=== PATIENT | male | born 1990 | race Caucasian/White ===

== ENCOUNTER 2023-06-22 09:52 | Emergency (ER) | payer BC, SELFPAY ==
[2023-06-22 09:58] VITALS: BP 164/74; PULSE 88; RESP 20; TEMP 36.7; O2SAT 96
[2023-06-22 10:41] LABS: Appearance Urine Clear (Clear); Bilirubin Urine 1+ (Negative); Blood Urine Negative (Negative); Color Urine Dark Yellow (Yellow); Glucose Urine UA Negative (Negative); Ketones Urine Negative (Negative); Leukocyte Esterase Ur Negative LEU/UL (Negative); Nitrate Urine Negative (Negative); Protein Urine Negative (Negative); Specific Grav Ur 1.023 (1.001-1.035)
--- NOTE | 2023-06-22 10:46 | ED.MALEGU ---
HPI - Male Genitourinary General Chief complaint: Urogenital-Male Stated complaint: bladder spasm? Time Seen by Provider: 06/22/23 09:57 History of Present Illness HPI Narrative: Patient is a 32-year-old male who presents ER with concerns for urinary dribbling. This has been a chronic issue. He has been seen at several ERs. He was recently started on Azo for it. No urinary frequency urgency or dysuria. No nocturia. Denies exposure to STD. 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 He has had a PCP however [place]. Patient reports after he voids but also sporadically he will just dribble some urine into his underwear. He has no difficulty sensing his need to urinate. Related Data Allergies Allergy/AdvReac Type Severity Reaction Status Date / Time No Known Allergies Allergy Verified 06/22/23 09:59 Review of Systems Constitutional: Constitutional: Denies chills and Denies fever(s) Gastrointestinal: Gastrointestinal: Denies abdominal pain, Denies nausea and Denies vomiting Genitourinary: Genitourinary: Denies hematuria, Denies dysuria, Denies testicular pain and Denies urinary frequency Comments: Urinary dribbling Exam Narrative: GENERAL: Well-appearing, morbidly obese, and in no acute distress. HEAD: Normocephalic, atraumatic. CHEST: Clear to auscultation. No respiratory distress. HEART: Regular rate and rhythm. Normal peripheral pulses. EXTREMITIES: Normal range of motion. No edema. NEURO: Alert and oriented x3. PSYCH: Normal mood and affect. Course Course Emergency Course: Approximate follow-up patient follow-up with his PCP and potentially urology. May have some prostate issues. Also discussed ways to prevent dribbling urine Vital Signs Vital signs: Vital Signs Temperature 98.0 F 06/22/23 09:58 Pulse Rate 88 06/22/23 09:58 Respiratory Rate 20 06/22/23 09:58 Blood Pressure 164/74 H 06/22/23 09:58 Pulse Oximetry 96 06/22/23 09:58 Oxygen Delivery Room Air 06/22/23 09:58 Temperature 98.0 F 06/22/23 09:58 Pulse Rate 88 06/22/23 09:58 Respiratory Rate 20 06/22/23 09:58 Blood Pressure 164/74 H 06/22/23 09:58 Pulse Oximetry 96 06/22/23 09:58 Oxygen Delivery Room Air 06/22/23 09:58 MDM - Male Genitourinary Lab Data Labs: Lab Results 06/22/23 Range/Units 10:31 Urine Color Dark yellow (Yellow) Urine Appearance Clear (Clear) Urine pH 7.0 (5.0-9.0) Ur Specific [place] 1.023 (1.001-1.035) Urine Protein Negative (Negative) mg/dL Urine Glucose (UA) Negative (Negative) mg/dL Urine Ketones Negative (Negative) mg/dL Ur Blood (Man) Negative (Negative) Urine Nitrate Negative (Negative) Urine Bilirubin 1+ H (Negative) Urine Urobilinogen 1.0 (<2.0) mg/dL Leukocyte Esterase Rfl Negative (Negative) RACHNA/UL Discharge Plan Discharge Clinical Impression: Urinary dribbling Patient Disposition: Home, Self-Care Condition: Stable Instructions: Kegel Exercises for Men (DC) Additional Instructions: Return the ER if you have fever over 100.4 ?F, you cannot keep down food or water, you lose consciousness, you have additional concerns. Follow-up/Referrals: PHYSICIAN,GRILL COOK [Primary Care Provider] - Eleazar Jennings MD [Physician] - 1 Week
[2023-06-22 10:48] LABS: Add Urine Microscopic? NO
== END 2023-06-22 11:34 | disposition home or self-care (01) ==
PROVIDERS: Emergency Provider Emergency Medicine
DX: N39.43 Post-void dribbling (principal)
CPT/HCPCS: 81003; 99283